=== PATIENT | female | born 1960 | race Caucasian/White ===

== ENCOUNTER 2020-09-28 16:12 | Emergency (ER) | payer MEDICARE, MEDICAID ==
[~2020-09-28] VITALS: Ht 162.6 cm; Wt 63.2 kg
[~2020-09-28 16:12] MED LIST: ACET-2619 PO; ALBU0.0939 IH; APID SUBQ; ATI.5 PO; DIVA500E2 PO; INSU100S22 SUBQ; LORA10TA19 PO; SYN.1 PO
--- NOTE | 2020-09-28 16:12 | NUR ---
1603--PT BIBA TO BED 09.
[2020-09-28 16:15] VITALS: BP 132/68
--- NOTE | 2020-09-28 16:20 | NUR ---
60 Y/O FEMALE BIBDarren FROM [facility] FOR HYPERGLYCEMIA. PER EMS, FACILITY TOOK HER BS AND IT WAS OVER 450 AND GAVE INSULIN, UNKNOWN UNITS. EMS TOOK BS AT 384. ON ARRIVAL TO HOSPITAL, BS 441. PT DENIES HYPERGLYCEMIA SYMPTOMS, DENIES N/V/FUITY BREATH, POLYDYPSIA, POLYURIA. PT STATES SHE FEELS LIKE ROOM IS SPINNING DUE TO VERTIGO. PT DENIES PAIN AT THIS TIME. PT RECEIVED BOTH COVID VACCINES. PT IS A/O X4 WITH EVEN AND UNLABORED RESPIRATIONS. PT AMBULATES WITH WALKER. PT LAYING IN BED WITH BED IN LOWESTPOSITION, BRAKES LOCKED, X2 SIDERAILS UP FOR SAFTETY. PT HAS HX OF FALLS. PMH: DM, ARTHRITIS, VERTIGO, HYPOTHYROIDISM. ALLERGIES: PCN
[2020-09-28] MEDS ORDERED: NACL 0.9% 1,000 ML IV ONE (16:40)
--- NOTE | 2020-09-28 16:43 | NUR ---
PT AMBULATED WITH WALKER TO RESTROOM FOR URINE SAMPLE. STEADY AND EVEN GAIT
--- NOTE | 2020-09-28 16:46 | NUR ---
PT AMBULATED BACK TO ROOM AND ATTACHED TO MONITOR
[2020-09-28 16:50] LABS: BASOPHILS # (AUTO) 0.1 K/uL (0.00-0.22); BASOPHILS % (AUTO) 1.1 % (0.0-2.0); EOSINOPHILS # (AUTO) 0.1 K/uL (0-0.4); EOSINOPHILS % (AUTO) 2.2 % (0.0-4.0); HEMATOCRIT 42.2 % (36-48); HEMOGLOBIN 13.6 g/dL (12.0-16.0); LYMPHOCYTES # (AUTO) 2.1 K/uL (2.5-16.5); LYMPHOCYTES % (AUTO) 31.8 % (20.5-51.1); MEAN CORPUSCULAR HEMOGLOBIN 26 pg (27-31); MEAN CORPUSCULAR HGB CONC 32 g/dL (33-37); MEAN CORPUSCULAR VOLUME 80.9 fL (80-94); MONOCYTES # (AUTO) 0.6 K/uL (0.8-1.0); MONOCYTES % (AUTO) 8.3 % (1.7-9.3); NEUTROPHILS # (AUTO) 3.8 K/uL (1.8-7.7); NEUTROPHILS % (AUTO) 56.6 % (42.2-75.2); PLATELET COUNT (AUTO) 268 K/uL (140-450); RED BLOOD CELL COUNT(AUTO) 5.21 MIL/uL (4.20-5.40); RED CELL DISTRIBUTION WIDTH 13.7 % (11.6-13.7); WHITE BLOOD COUNT (AUTO) 6.7 K/uL (4.8-10.8)
--- NOTE | 2020-09-28 16:51 | NUR ---
SAID AT BEDSIDE
[2020-09-28 16:58] LABS: ALBUMIN 3.5 g/dL (3.4-5.0); ANION GAP 13.6 (8-16); CARBON DIOXIDE 26.5 mmol/L (21-32); CREATININE 1.1 mg/dL (0.6-1.3); POTASSIUM 4.1 mmol/L (3.5-5.1); TOTAL BILIRUBIN 0.4 mg/dL (0.0-1.0)
[2020-09-28] MEDS ORDERED: INSULIN REGULAR, HUMAN 100 UNIT/ML VIAL SUBQ ONE (17:05)
[2020-09-28 17:29] LABS: APPEARANCE,URINE CLEAR (CLEAR); BILIRUBIN,URINE NEGATIVE (NEGATIVE); BLOOD, URINE TRACE-I (NEGATIVE); COLOR,URINE YELLOW (YELLOW); LEUKOCYTE ESTERASE ,URINE NEGATIVE (NEGATIVE); NITRITE, URINE NEGATIVE (NEGATIVE); UGLUCOSE 3+ (NEGATIVE)
--- NOTE | 2020-09-28 17:41 | NUR ---
pt laying in bed with even and unlabored respirations. pt in lowest position, brakes locked, x2 siderails up for safety. will continue to monitor
[2020-09-28 17:45] LABS: RBC,URINE 0-5 /HPF (0-5); WBC,URINE 0-5 /HPF (0-5)
[2020-09-28 19:15] VITALS: BP 132/68
--- NOTE | 2020-09-28 19:16 | NUR ---
Patient discharged with v/s stable. Written and verbal after care instructions given and explained. Patient verbalized understanding. Ambulatory with steady gait with w/c. All questions addressed prior to discharge. Advised to follow up with PMD.
== END 2020-09-28 19:16 | disposition home or self-care (01) ==
LOC: MED 16:32
DX: E11.65 Type 2 diabetes mellitus with hyperglycemia (principal); I10 Essential (primary) hypertension; Z88.0 Allergy status to penicillin; E07.9 Disorder of thyroid, unspecified; Z79.899 Other long term (current) drug therapy
CPT/HCPCS: 36415; 80053; 81001; 83690; 85025; 87086; 96360; 96361; 96372; 99283; J1815; J7030

== ENCOUNTER 2020-11-20 17:53 | Emergency (ER) | payer MEDICARE, MEDICAID ==
[~2020-11-20] VITALS: Ht 167.6 cm; Wt 67.1 kg
--- NOTE | 2020-11-20 17:53 | NUR ---
Patient YAMIL WALL from [facility], transferred to bed 8. RN evaluating the patient at bedside.
[2020-11-20] MEDS ORDERED: DEXTROSE 50% 50 ML SYR IVP ONE ×2 (18:05→18:08)
[2020-11-20 18:06] VITALS: BP 158/77
--- NOTE | 2020-11-20 18:10 | NUR ---
BLOOD SUGAR 42 UPON ARRIVAL. ERMD AWARE, ORDERS RECEIVED.
--- NOTE | 2020-11-20 18:10 | NUR ---
54 Y/O FEMALE BIBA FROM [facility] C/O BACK PAIN 01/04 X2DAY. PER MEDIC PT WAS ARGUING WITH CAREGIVER AND WAS TOLD "IF YOU CAN GET YOUR OWN CIGARRETES YOU CAN GET YOUR OWN DINNER". BS 70 PER MEDIC. PT AAOX4, DENIES ANY HEADACHE,DIZZINESS. PMH: OSTEOARTHRITIS, DM, RA ALLERGIES: PCN
[2020-11-20] MEDS ORDERED: KETOROLAC 30 MG/ML VIAL IVP ONE (18:25)
--- NOTE | 2020-11-20 18:35 | NUR ---
Dr. Guadalupe is evaluating the patient at bedside.
[2020-11-20] MEDS ORDERED: IBUP-2213 PO ×2 (18:55→19:00)
[2020-11-20] MEDS ORDERED: ACET-8386 PO ×2 (18:55→19:01)
--- NOTE | 2020-11-20 20:12 | NUR ---
CALLED [facility] AND GAVE REPORT.
--- NOTE | 2020-11-20 20:22 | NUR ---
Patient discharged with v/s stable. Written and verbal after care instructions given and explained. Patient alert, oriented and verbalized understanding of instructions. Ambulance Transport with to senior living. All questions addressed prior to discharge. IV ACCESS AND ID band removed. Patient advised to follow up with PMD. Rx of NORCO, IBUPROFEN given. Patient educated on indication of medication including possible reaction and side effects. Opportunity to ask questions provided and answered.
[2020-11-20 20:23] VITALS: BP 158/77
== END 2020-11-20 20:22 | disposition home or self-care (01) ==
LOC: MED 17:53
DX: M54.6 Pain in thoracic spine (principal); E10.65 Type 1 diabetes mellitus with hyperglycemia; E03.9 Hypothyroidism, unspecified; F17.200 Nicotine dependence, unspecified, uncomplicated; Z79.4 Long term (current) use of insulin; Z79.899 Other long term (current) drug therapy; Z88.0 Allergy status to penicillin; Z98.890 Other specified postprocedural states
CPT/HCPCS: 81002; 81025; 96374; 96375; 99284; J1885

== ENCOUNTER 2021-11-25 18:13 | Emergency (ER) | payer MEDICARE, MEDICAID ==
[~2021-11-25] VITALS: Ht 162.6 cm; Wt 59.0 kg
[~2021-11-25 18:13] MED LIST changes: +ACET-8386 PO; +IBUP-2213 PO
[2021-11-25 18:23] VITALS: BP 139/71
--- NOTE | 2021-11-25 18:44 | NUR ---
61/F YAMIL FROM [facility]. PER EMS STAFF CALLED 911 STATING PATIENT TOOK HER RX OF 6 UNITS OF INSULIN AND BEGAN HAVING N/V AND BECAME LETHARGIC. EMS STATES PATIENTS BS WAS 52 ON SCENE. D10 GIVEN IVP, UPON ARRIVAL PATIENT AWAKE AND ANSWERING QUESTIONS APPROPRIATELY. CURRENT GLUCOSE 179. PT DENIES ANY PAIN CURRENTLY. DENIES ANY BLOOD IN VOMIT. STATED "SHE ONLY VOMITTED DUE TO THE FOOD AT HER FACILITY BEING DISGUSTING." PMH: HTN, DM, HYPOTHYROID ALLERGIES: PENICILLINS
--- NOTE | 2021-11-25 18:54 | NUR ---
LAB AT PATIENT BEDSIDE
--- NOTE | 2021-11-25 19:14 | NUR ---
REPORT RECEIVED FROM SHAYY NUNES. CONTINUITY OF PT CARE AT THIS TIME.
[2021-11-25 19:16] LABS: BASOPHILS % (AUTO) 0.1 % (0.0-2.0); EOSINOPHILS # (AUTO) 0.1 K/uL (0-0.4); EOSINOPHILS % (AUTO) 0.6 % (0.0-4.0); HEMATOCRIT 46.8 % (36-48); HEMOGLOBIN 15.1 g/dL (12.0-16.0); LYMPHOCYTES # (AUTO) 0.9 K/uL (2.5-16.5); MEAN CORPUSCULAR HEMOGLOBIN 26 pg (27-31); MEAN CORPUSCULAR HGB CONC 32 g/dL (33-37); MEAN CORPUSCULAR VOLUME 79.8 fL (80-94); MONOCYTES # (AUTO) 1.2 K/uL (0.8-1.0); MONOCYTES % (AUTO) 6.9 % (1.7-9.3); NEUTROPHILS # (AUTO) 15.1 K/uL (1.8-7.7); NEUTROPHILS % (AUTO) 87.4 % (42.2-75.2); PLATELET COUNT (AUTO) 302 K/uL (140-450); RED BLOOD CELL COUNT(AUTO) 5.86 MIL/uL (4.20-5.40); RED CELL DISTRIBUTION WIDTH 14.9 % (11.6-13.7); WHITE BLOOD COUNT (AUTO) 17.3 K/uL (4.8-10.8)
--- NOTE | 2021-11-25 19:16 | NUR ---
Pt report given to SHAYY BEARDEN. Transfer of care at this time.
--- NOTE | 2021-11-25 19:20 | NUR ---
PT LAYING IN BED LOCKED LOCKED IN LOWEST POSITION W X2 SIDERAILS UP FOR PT SAFETY. PT REPORTS FEELING ALOT BETTER, DENIES ONGOING N/V. PT REPORTS SHE HAD TAKEN HER INSULIN BUT HAD NOT BEEN ABLE TO KEEP HER FOOD DOWN. PT AOX4 AT THIS TIME. PT HAS NO COMPLAINTS. ALL NEEDS MET, WILL CONTINUE TO MONITOR.
[2021-11-25 19:46] LABS: ALBUMIN 3.5 g/dL (3.4-5.0); ASPARTATE AMINOTRANSFERASE 15 U/L (15-37); CHLORIDE 103 mmol/L (98-107); CREATININE 0.8 mg/dL (0.6-1.3); GFR ARICAN-AMERICAN 94 mL/min (>90); GLUCOSE 150 mg/dL (74-106); POTASSIUM 4.2 mmol/L (3.5-5.1); SODIUM SERUM 139 mmol/L (136-145); TOTAL BILIRUBIN 0.3 mg/dL (0.0-1.0); UREA NITROGEN, BLOOD 15 mg/dL (7-18)
[2021-11-25 19:54] LABS: ANION GAP 11.2 (8-16)
--- NOTE | 2021-11-25 20:42 | NUR ---
PT AMBULATORY TO BATHROOM W STEADY GAIT. Addendum: 11/25/21 at 2126 by MEDMAGGIEK PT PROVIDED VERY LITTLE URINE, NOT ENOUGH FOR ED DIP AND LAB, SAMPLE SENT TO LAB, TOM AWARE.
--- NOTE | 2021-11-25 21:24 | NUR ---
PT APPEARS TO BE RESTING IN SUPINE POSITION W EYES CLOSED. BREATHING EVEN AND UNLABORED, WILL CONTINUE TO MONITOR.
[2021-11-25 21:25] LABS: BILIRUBIN,URINE NEGATIVE (NEGATIVE); BLOOD, URINE NEGATIVE (NEGATIVE); COLOR,URINE YELLOW (YELLOW); LEUKOCYTE ESTERASE ,URINE 1+ (NEGATIVE); NITRITE, URINE NEGATIVE (NEGATIVE); UGLUCOSE 2+ (NEGATIVE)
[2021-11-25 21:30] LABS: APPEARANCE,URINE HAZY (CLEAR)
[2021-11-25 21:44] LABS: RBC,URINE NONE SEEN /HPF (0-5)
--- NOTE | 2021-11-25 23:04 | NUR ---
pt discharge, per ermd pt ok to be transported back to facility via uber transportation.
--- NOTE | 2021-11-25 23:48 | NUR ---
PT AOX4, GCAS 15, AMBULATORY W STEADY GAIT. VSS W/IN NORMAL LIMITS, DENIES ANY SYMPTOMS.
--- NOTE | 2021-11-25 23:50 | NUR ---
ATTEMPTED TO CALL [facility] TO INFORM OF PT DISCHARGE. NO ANSWER X2.
[2021-11-26 01:14] VITALS: BP 136/79
--- NOTE | 2021-11-26 01:14 | NUR ---
Patient discharged with v/s stable. Written and verbal after care instructions given and explained. Patient verbalized understanding. Ambulatory with steady gait. All questions addressed prior to discharge. Advised to follow up with PMD.
== END 2021-11-26 01:14 | disposition home or self-care (01) ==
LOC: MED 18:13
DX: D72.829 Elevated white blood cell count, unspecified (principal); E10.9 Type 1 diabetes mellitus without complications; E03.9 Hypothyroidism, unspecified; F17.210 Nicotine dependence, cigarettes, uncomplicated; Z88.0 Allergy status to penicillin; Z79.899 Other long term (current) drug therapy; Z79.4 Long term (current) use of insulin; Z98.890 Other specified postprocedural states
CPT/HCPCS: 36415; 80053; 81001; 81002; 84484; 85025; 87086; 93005; 99285

== ENCOUNTER 2022-01-26 09:06 | Emergency (ER) | payer MEDICARE, MEDICAID ==
[~2022-01-26] VITALS: Ht 162.6 cm; Wt 54.4 kg
[2022-01-26 09:14] VITALS: BP 171/56
[2022-01-26] MEDS ORDERED: LORazepam 0.5 MG TAB PO ONE (09:40)
--- NOTE | 2022-01-26 09:45 | NUR ---
CALLED [facility], SPOKE WITH EFRAÍN. STATED PT HAS A POA. PACKET WAS NOT SENT WITH PATIENT. [facility] WILL BE FAXING INFORMATION.
--- NOTE | 2022-01-26 09:48 | NUR ---
61/F YAMIL FROM [facility]. PER EMS PATIENT CALLED 911 STATING HER FACILITY WAS REFUSING TO GIVE HER OATMEAL AND SHE BELIEVED HER BLOOD SUGAR WAS LOW. EMS STATES ON SCENE BS WAS 61 STATING THEY GIVE HER ORAL GLUCOSE BRINGING HER BS TO 74. PATIENT DENYING PAIN, N/V/D.
--- NOTE | 2022-01-26 09:50 | NUR ---
lab at bedside.
[2022-01-26] MEDS ORDERED: HALOPERIDOL IM 5 MG/ML VIAL IM ONE (09:55)
[2022-01-26 10:08] LABS: BASOPHILS # (AUTO) 0.1 K/uL (0.00-0.22); BASOPHILS % (AUTO) 0.7 % (0.0-2.0); EOSINOPHILS # (AUTO) 0.2 K/uL (0-0.4); EOSINOPHILS % (AUTO) 2.1 % (0.0-4.0); HEMATOCRIT 46.5 % (36-48); HEMOGLOBIN 15.3 g/dL (12.0-16.0); LYMPHOCYTES # (AUTO) 2.4 K/uL (2.5-16.5); LYMPHOCYTES % (AUTO) 25.1 % (20.5-51.1); MEAN CORPUSCULAR HEMOGLOBIN 27 pg (27-31); MEAN CORPUSCULAR HGB CONC 33 g/dL (33-37); MEAN CORPUSCULAR VOLUME 80.6 fL (80-94); MONOCYTES # (AUTO) 0.8 K/uL (0.8-1.0); MONOCYTES % (AUTO) 8.6 % (1.7-9.3); NEUTROPHILS # (AUTO) 6.1 K/uL (1.8-7.7); NEUTROPHILS % (AUTO) 63.5 % (42.2-75.2); PLATELET COUNT (AUTO) 330 K/uL (140-450); RED BLOOD CELL COUNT(AUTO) 5.78 MIL/uL (4.20-5.40); RED CELL DISTRIBUTION WIDTH 14.9 % (11.6-13.7); WHITE BLOOD COUNT (AUTO) 9.6 K/uL (4.8-10.8)
[2022-01-26 10:32] LABS: ALBUMIN 3.6 g/dL (3.4-5.0); ANION GAP 15.8 (8-16); ASPARTATE AMINOTRANSFERASE 15 U/L (15-37); CARBON DIOXIDE 24.1 mmol/L (21-32); CHLORIDE 107 mmol/L (98-107); CREATININE 0.9 mg/dL (0.6-1.3); GFR ARICAN-AMERICAN 82 mL/min (>90); GLUCOSE 85 mg/dL (74-106); LIPASE 92 U/L (73-393); POTASSIUM 3.9 mmol/L (3.5-5.1); SODIUM SERUM 143 mmol/L (136-145); TOTAL BILIRUBIN 0.3 mg/dL (0.0-1.0); UREA NITROGEN, BLOOD 12 mg/dL (7-18)
--- NOTE | 2022-01-26 11:04 | NUR ---
Obtained urine sample, walked to lab. Handed to CPT. Jessee
[2022-01-26 11:21] LABS: APPEARANCE,URINE CLEAR (CLEAR); BILIRUBIN,URINE NEGATIVE (NEGATIVE); BLOOD, URINE NEGATIVE (NEGATIVE); COLOR,URINE YELLOW (YELLOW); LEUKOCYTE ESTERASE ,URINE NEGATIVE (NEGATIVE); NITRITE, URINE NEGATIVE (NEGATIVE); PH,URINE 6.5 (5.0-9.0); UGLUCOSE NEGATIVE (NEGATIVE)
--- NOTE | 2022-01-26 11:30 | NUR ---
CALLED [facility] TO SET UP TRANSPORT BACK TO FACILITY. THEY STATED THEY WILL PICK HER UP AT 1230
[2022-01-26 12:20] VITALS: BP 173/70
--- NOTE | 2022-01-26 12:21 | NUR ---
Patient discharged with v/s stable. Written and verbal after care instructions ABOUT HYPOGLYCEMIA given and explained. Patient verbalized understanding. Wheel Chair Assisted with to car. All questions addressed prior to discharge. Advised to follow up with PMD. [facility] STAFF CAME TO [facility] PT.
== END 2022-01-26 12:21 | disposition home or self-care (01) ==
LOC: MED 09:06
DX: E10.649 Type 1 diabetes mellitus with hypoglycemia without coma (principal); I10 Essential (primary) hypertension; E03.9 Hypothyroidism, unspecified; F17.210 Nicotine dependence, cigarettes, uncomplicated; Z88.0 Allergy status to penicillin; Z98.890 Other specified postprocedural states; Z79.4 Long term (current) use of insulin; Z79.899 Other long term (current) drug therapy
CPT/HCPCS: 36415; 80053; 81003; 83690; 84484; 85025; 93005; 99284; J1630

== ENCOUNTER 2022-06-04 18:45 | Emergency (ER) | payer MEDICARE, MEDICAID ==
[~2022-06-04] VITALS: Ht 162.6 cm; Wt 54.4 kg
[2022-06-04 18:49] VITALS: BP 149/66
[2022-06-04 19:45] LABS: ANION GAP 5.9 (8-16); CARBON DIOXIDE 26.8 mmol/L (21-32); CREATININE 0.9 mg/dL (0.6-1.3); POTASSIUM 3.7 mmol/L (3.5-5.1)
[2022-06-04 21:50] VITALS: BP 131/88
--- NOTE | 2022-06-04 21:50 | NUR ---
Patient discharged with v/s stable. Written and verbal after care instructions given and explained. Patient verbalized understanding. Ambulatory to [employer] car. Attempted to call facility to let them know about pt arriving via uber. ID band removed. All questions addressed prior to discharge. Advised to follow up with PMD.
--- NOTE | 2022-06-05 04:15 | NUR ---
06/04/22 21:52- IV removed, catheter intact and site benign. Applied folded 4x4 gauze and tape to stop bleeding. 21:53- attempted to call facility and no answer at this time 21:54- attempted to call facility and no answer at this time 22:00- called mother and spoke to mother about pt going home via uber. 22:03- called facility once again and no answer at this time 22:13- called facility- no answer at this time
== END 2022-06-04 21:50 | disposition home or self-care (01) ==
LOC: MED 18:45
DX: E10.649 Type 1 diabetes mellitus with hypoglycemia without coma (principal); I10 Essential (primary) hypertension; E07.9 Disorder of thyroid, unspecified; Z79.4 Long term (current) use of insulin; Z79.899 Other long term (current) drug therapy; Z88.0 Allergy status to penicillin; Z98.890 Other specified postprocedural states
CPT/HCPCS: 36415; 80048; 99283